=== PATIENT | male | born 1980 | race Asian ===

== ENCOUNTER → 2021-03-17 | Outpatient (CLI) | payer OTHER | LOC: LAB 22:52 | DX: Z20.822 Contact with and (suspected) exposure to COVID-19 (principal) | CPT/HCPCS: 87081; 87880; U0002 ==

== ENCOUNTER → 2021-10-16 | Outpatient (CLI) | payer OTHER | LOC: EROP 12:04 | DX: Z20.822 Contact with and (suspected) exposure to COVID-19 (principal) | CPT/HCPCS: U0002 ==